=== PATIENT | female | born 1975 | race Caucasian/White ===

== ENCOUNTER 2016-11-09 09:22 | Emergency (ER) | payer MEDICAID ==
[~2016-11-09] VITALS: Ht 154.9 cm; Wt 57.1 kg
[~2016-11-09 09:22] MED LIST: DOCU-30 PO; IBUP-1222 PO; LABE100T3 PO; OXYC-302 PO
[2016-11-09] MEDS ORDERED: SODIUM CHLORIDE 0.9% 1,000ML IVBOLUS ONE (11:00)
[2016-11-09] MEDS ORDERED: SODIUM CHLORIDE FLUSH 10ML SYR IVF ONE (11:00)
[2016-11-09 11:21] LABS: BLOOD UREA NITROGEN 8 mg/dL (7-18)
[2016-11-09 11:27] LABS: ASPARTATE AMINO TRANSFERASE 11 U/L (15-37)
[2016-11-09] MEDS ORDERED: FAMOTIDINE 20 MG/2 ML ONE (13:01)
[2016-11-09] MEDS ORDERED: MORPHINE SULFATE 4 MG/ML, 1ML ONE (13:01)
[2016-11-09] MEDS ORDERED: ONDANSETRON 2MG/ML, 2ML ONE (13:01)
[2016-11-09] MEDS ORDERED: FAMOTIDINE 20 MG/2 ML IVP ONE (13:30)
[2016-11-09] MEDS ORDERED: ONDANSETRON 2MG/ML, 2ML IVPush ONE (13:30)
[2016-11-09] MEDS ORDERED: MORPHINE SULFATE 4 MG/ML, 1ML IVPush PRN (13:30)
[2016-11-09] MEDS ORDERED: OMNIPAQUE 350 MG/ML, 100ML BOTTLE ONE (13:41)
[2016-11-09 15:00] VITALS: BP 120/60
== END 2016-11-09 15:18 | disposition home or self-care (01) ==
LOC: ED 13:54
DX: R10.31 Right lower quadrant pain (principal); R10.32 Left lower quadrant pain; R10.2 Pelvic and perineal pain
CPT/HCPCS: 36415; 74177; 80053; 81001; 84703; 85025; 87086; 96374; 96375; 99285; J2405; J7030; Q9967; S0028